=== PATIENT | female | born 1945 | race Hispanic/Latino ===

== ENCOUNTER 2018-11-05 10:56 | Emergency (ER) | payer MEDICARE ==
--- NOTE | 2018-11-05 11:08 | Emergency Department Report ---
ED CPR HPI - General Chief Complaint: Cardiac Arrest/CPR Stated Complaint: CARDIAC ARREST Time Seen by Provider: 11/05/18 11:06 Source: EMS Mode of arrival: Stretcher Limitations: Other - History of Present Illness Initial Comments: 73-year-old C F presents to the emergency department via EMS from the [facility] in cardiac arrest. The patient was complaining of shortness of breath when she had a witnessed arrest about 2 minutes prior to EMS arrival. Since it was a witnessed arrest, EMS did a defibrillation. She was given a Dylon airway. Chest compressions were started and the patient had about 3 rounds of ACLS protocol with 3 doses of epinephrine and one of sodium bicarbonate. Patient apparently has a past medical history of CVA, hyperlipidemia, hypertension. The call was that the patient was still in PEA but the patient arrived in asystole. - Related Data Home Medications Medication Instructions Recorded Confirmed Last Taken RisperiDONE 1 mg PO BID 01/01/16 12/14/17 01/01/16 25 Venlafaxine 150 mg PO DAILY 01/01/16 12/14/17 01/01/16 150mg Vyvanse 20 mg PO DAILY 01/01/16 12/14/17 01/01/16 70mg hydrALAZINE 50 mg PO ONCE 01/01/16 12/14/17 01/01/16 amLODIPine 5 mg PO ONCE 12/14/17 12/14/17 Unknown Previous Rx's Medication Instructions Recorded Last Taken Type Aspirin [Aspirin TAB] 325 mg PO QDAY #30 tablet 12/16/17 Unknown Rx AtorvaSTATin [Lipitor] 20 mg PO QHS #30 tablet 12/16/17 Unknown Rx amLODIPine [Norvasc] 5 mg PO QDAY tablet 12/16/17 Unknown Rx Allergies Allergy/AdvReac Type Severity Reaction Status Date / Time Sulfa (Sulfonamide Allergy Itching Verified 01/01/16 22:45 Antibiotics) ED Review of Systems ROS: Stated complaint: CARDIAC ARREST Other details as noted in HPI Comment: Unobtainable due to pts medical conditions ED Past Medical Hx - Past Medical History Previous Medical History?: Yes Hx Hypertension: Yes Hx Renal Disease: Yes (chronic kidney disease) Hx Arthritis: Yes Hx Psychiatric Treatment: Yes (depression) Hx Asthma: Yes - Surgical History Additional Surgical History: hysterectomy, tonisectomy - Social History Smoking Status: Unknown if ever smoked - Medications Home Medications: Home Medications Medication Instructions Recorded Confirmed Last Taken Type RisperiDONE 1 mg PO BID 01/01/16 12/14/17 01/01/16 History 25 Venlafaxine 150 mg PO DAILY 01/01/16 12/14/17 01/01/16 History 150mg Vyvanse 20 mg PO DAILY 01/01/16 12/14/17 01/01/16 History 70mg hydrALAZINE 50 mg PO ONCE 01/01/16 12/14/17 01/01/16 History amLODIPine 5 mg PO ONCE 12/14/17 12/14/17 Unknown History Aspirin [Aspirin TAB] 325 mg PO QDAY #30 tablet 12/16/17 Unknown Rx AtorvaSTATin [Lipitor] 20 mg PO QHS #30 tablet 12/16/17 Unknown Rx amLODIPine [Norvasc] 5 mg PO QDAY tablet 12/16/17 Unknown Rx ED Physical Exam - General Limitations: Other - Other Other exam information: GENERAL: Patient is ill-appearing and unresponsive. HEENT: Normocephalic. Atraumatic. Dylon airway in place. There is a lot of gastric secretions seen coming from the oropharynx. EYES: Pupils are fixed and dilated.. NECK: Supple. Trachea is midline. CHEST/LUNGS: No spontaneous breath sounds. HEART/CARDIOVASCULAR: No spontaneous heart sounds. ABDOMEN: Abdomen is soft. SKIN: Skin is cool and dry. NEURO: The patient is unresponsive to any verbal or tactile stimuli. MUSCULOSKELETAL: There is no obvious deformity. There is no evidence of acute injury. ED Medical Decision Making - Medical Decision Making The patient had already received 3 rounds of ACLS protocol with EMS with 3 doses of epinephrine, 1 sodium bicarbonate, chest compressions, 1 defibrillation and bag valve ventilation through a Dylon airway. The patient got to the emergency department and was found to be in asystole. We immediately continued with high efficiency chest compressions. The Dylon airway was removed and I intubated the patient. We did another 3 rounds of ACLS protocol including 3 doses of epinephrine and another dose of sodium bicarbonate. At this point there was no return of spontaneous circulation, the patient remained pulseless and in asystole, and had received about 6 rounds of ACLS protocol. Time of was called at 11:04 AM. Critical Care Time: Yes Critical care time in (mins) excluding proc time.: 15 Critical care attestation.: If time is entered above; I have spent that time in minutes in the direct care of this critically ill patient, excluding procedure time. Critical care time was spent on this patient and doing her initial evaluation, supervision of ACLS protocol, and discussion of the patient's expiration with the patient's family. Critical Care Time: 15 minutes ED Disposition Clinical Impression: Cardiac arrest Respiratory failure Qualifiers: Chronicity: acute Respiratory failure complication: unspecified whether with hypoxia or hypercapnia Qualified Code(s): J96.00 - Acute respiratory failure, unspecified whether with hypoxia or hypercapnia Disposition: DC-20 Is pt being admited?: No Referrals: PRIMARY CARE, [Primary Care Provider] - 3-5 Days Time of Disposition: 11:36
== END 2018-11-05 12:00 ==
LOC: ED 10:56
CPT/HCPCS: 92950; 99285